=== PATIENT | male | born 1965 | race Two or more races ===

== ENCOUNTER 2018-10-06 06:56 | Emergency (ER) | payer BC, OTHER ==
[~2018-10-06] VITALS: Ht 177.8 cm; Wt 86.2 kg
[2018-10-06 08:30] LABS: Urine WBC None Seen /hpf (0 - 3)
[2018-10-06] MEDS ORDERED: SODIUM CHLORIDE 0.9% 1,000 ML IV ONE (08:34)
[2018-10-06 08:45] LABS: Urine Bacteria NONE SEEN /hpf (None Seen); Urine Blood Negative /uL (Negative); Urine Specific Gravity 1.011 (1.001-1.035)
[2018-10-06] MEDS ORDERED: MORPHINE SULFATE 4 MG/ML SYR/VIAL IV ONE (08:45)
[2018-10-06] MEDS ORDERED: ONDANSETRON HCL 4 MG/2 ML VIAL IV ONE (08:45)
[2018-10-06 10:29] VITALS: BP 111/26
== END 2018-10-06 10:39 | disposition home or self-care (01) ==
LOC: ER 06:56 → EDBD 06:56 → ER 10:39
DX: S29.9XXA Unspecified injury of thorax, initial encounter (principal); M62.838 Other muscle spasm; M54.2 Cervicalgia; Z88.6 Allergy status to analgesic agent; V43.52XA Car driver injured in collision with other type car in traffic accident, initial encounter; Y93.89 Activity, other specified; Y92.488 Other paved roadways as the place of occurrence of the external cause; Y99.8 Other external cause status
CPT/HCPCS: 71046; 72125; 81001; 93005; 96374; 96375; 99285; J2270; J2405; J7030